=== PATIENT | male | born 1950 | race Caucasian/White ===

== ENCOUNTER 2019-06-12 22:02 | Emergency (ER) | payer MEDICARE ==
[~2019-06-12] VITALS: Ht 165.1 cm; Wt 81.6 kg
[2019-06-12 22:09] VITALS: Ht 165.1 cm; Wt 81.6 kg
[2019-06-13 05:07] VITALS: BP 186/92
[2019-06-13 17:26] LABS: SOURCE FLUID SYNOVIAL FLUID
[2019-06-13 17:27] LABS: APPEARANCE FLUID BLOODY
[2019-06-13 17:28] LABS: COLOR FLUID YELLOW; RBC FLUID 1687 /cumm; WBC FLUID 203 /cumm
[2019-06-13 19:22] LABS: LYMPHOCYTE FLUID 15 %; MONOCYTE FLUID 7 %
== END 2019-06-13 06:04 | disposition home or self-care (01) ==
LOC: ED 22:02
PROVIDERS: Emergency Medicine
DX: M25.022 Hemarthrosis, left elbow (principal); M70.22 Olecranon bursitis, left elbow; I10 Essential (primary) hypertension; E11.9 Type 2 diabetes mellitus without complications; M10.9 Gout, unspecified; E78.00 Pure hypercholesterolemia, unspecified; Y93.89 Activity, other specified